=== PATIENT | female | born 1975 | race Caucasian/White ===

== ENCOUNTER → 2017-10-16 | Outpatient (CLI) | payer MEDICAID ==
[2017-10-16 08:04] LABS: Albumin 4.2 g/dL (3.5-5.0); Bilirubin, Delta 0.1 mg/dL (0.0-0.2); Bilirubin,Unconjugated 0.8 mg/dL (0.0-1.1); Total Bilirubin 0.9 mg/dL (0.2-1.3); Total Protein 6.9 g/dL (6.3-8.2)
== END | disposition home or self-care (01) ==
LOC: LABWHC1 07:24
PROVIDERS: ATTEND Family Medicine
DX: R74.8 Abnormal levels of other serum enzymes (principal)
CPT/HCPCS: 36415; 80076

== ENCOUNTER → 2017-11-05 | Outpatient (CLI) | payer MEDICAID ==
--- NOTE | 2017-11-05 12:32 | US ---
EXAMINATION TYPE: US abdomen complete DATE OF EXAM: 11/05/2017 COMPARISON: NONE CLINICAL HISTORY: R74.8 ABN Levels Of Other Serum Enzymes. EXAM MEASUREMENTS: Liver Length: 17.4 cm Gallbladder Wall: Surgically absent CBD: 0.3 cm Spleen: 11.6 cm Right Kidney: 12.2 x 4.9 x 4.8 cm Left Kidney: 11.3 x 4.7 x 4.9 cm Pancreas: wnl. Tail of pancreas obscured by bowel gas. Liver: Increased attenuation, decreased visualization of vessels suggestive of fatty infiltrate, upp er limits of normal in size Gallbladder: Surgically absent Evidence for sonographic Linares's sign: no CBD: wnl Spleen: wnl Right Kidney: Inferior pole slightly obscured by bowel gas, no hydronephrosis or masses seen Left Kidney: No hydronephrosis or masses seen Upper IVC: wnl Abd Aorta: wnl IMPRESSION: 1. Mild fatty infiltration of the liver.
== END | disposition home or self-care (01) ==
LOC: RADUSWWP 10:21
PROVIDERS: ATTEND Family Medicine
DX: K76.0 Fatty (change of) liver, not elsewhere classified (principal)
CPT/HCPCS: 76700

== ENCOUNTER → 2019-03-03 | Outpatient (CLI) | payer MEDICAID ==
--- NOTE | 2019-03-03 08:51 | US ---
EXAMINATION TYPE: US abdomen complete DATE OF EXAM: 03/03/2019 COMPARISON: Abdominal ultrasound dated 11/05/2017 CLINICAL HISTORY: R10.12 LUQ Pain. LUQ Pain EXAM MEASUREMENTS: Liver Length: 16.7 cm Gallbladder Wall: Surgically absent cm CBD: .5 cm Spleen: 11.4 cm Right Kidney: 10.2 x 4.4 x 4.8 cm Left Kidney: 11.0 x 5.6 x 4.9 cm Pancreas: Tail is largely obscured by bowel gas however there appears to be a 5 mm possible pancreat ic tail hypoechoic lesion on image 4/60. Liver: There is increased echogenicity of the hepatic parenchyma with diminished visualization of th e portal triads most commonly relating to hepatic steatosis and limiting evaluation for underlying he patic masses. Gallbladder: Surgically absent Evidence for sonographic Linares's sign: No CBD: wnl Spleen: wnl Right Kidney: wnl Left Kidney: wnl Upper IVC: wnl Abd Aorta: wnl The liver is heterogenous. The intrahepatic portion of the IVC and proximal abdominal aorta are with in normal limits. Common bile duct is unremarkable. The spleen is unremarkable. Kidneys are symmetr ic and free of hydronephrosis. No renal lesions are seen. IMPRESSION: 1. Sonographic findings most commonly related to hepatic steatosis. Correlate with liver function ava ts. 2. Possible 5 mm pancreatic tail lesion seen on a single image only. Further evaluation with MRCP wit h and without contrast is recommended. 3. Surgical absence of the gallbladder.
[2019-03-03 09:36] LABS: Basophils # (A) 0.1 k/uL (0-0.2); Basophils % (A) 1 %; Eosinophils # (A) 0.8 k/uL (0-0.7); Eosinophils % (A) 9 %; HCT 42.5 % (34.0-46.0); HGB 13.6 gm/dL (11.4-16.0); Lymphocytes # (A) 2.8 k/uL (1.0-4.8); Lymphocytes % (A) 31 %; MCH 28.5 pg (25.0-35.0); MCHC 32.1 g/dL (31.0-37.0); MCV 88.9 fL (80.0-100.0); Monocytes # (A) 0.4 k/uL (0-1.0); Monocytes % (A) 5 %; Neutrophils # (A) 4.8 k/uL (1.3-7.7); Neutrophils % (A) 53 %; Platelet Count 352 k/uL (150-450); RBC 4.78 m/uL (3.80-5.40); RDW 12.8 % (11.5-15.5)
[2019-03-03 10:00] LABS: ALT 29 U/L (9-52); AST 23 U/L (14-36); African American GFR (CKD) >90 (>60 ml/min/1.73 sqM); Albumin 4.3 g/dL (3.5-5.0); Alkaline Phosphatase 121 U/L (38-126); Amylase 44 U/L (30-110); Anion Gap 11 mmol/L; Blood Urea Nitrogen 10 mg/dL (7-17); Calcium 8.9 mg/dL (8.4-10.2); Carbon Dioxide 25 mmol/L (22-30); Chloride 106 mmol/L (98-107); Cholesterol 194 mg/dL (<200); Glucose 110 mg/dL (74-99); HDL Cholesterol 48 mg/dL (40-60); LDL Cholesterol,Calculated 130 mg/dL (0-99); Non-African American GFR(CKD) >90 (>60 ml/min/1.73 sqM); Potassium 4.8 mmol/L (3.5-5.1); Sodium 142 mmol/L (137-145); Total Protein 7.6 g/dL (6.3-8.2); Triglycerides 80 mg/dL (<150)
== END | disposition home or self-care (01) ==
LOC: RADUSWWP 07:58
PROVIDERS: ATTEND Family Medicine
DX: R10.12 Left upper quadrant pain (principal); Z90.49 Acquired absence of other specified parts of digestive tract; F32.9 Major depressive disorder, single episode, unspecified; E78.89 Other lipoprotein metabolism disorders; R74.8 Abnormal levels of other serum enzymes
CPT/HCPCS: 76700; 80053; 80061; 82150; 83690; 84443; 85025

== ENCOUNTER → 2019-03-14 | Outpatient (CLI) | payer MEDICAID ==
--- NOTE | 2019-03-14 12:37 | MR ---
MRCP HISTORY: Abnormal diagnostic imaging, left upper quadrant pain Multiplanar multisequence imaging obtained through the biliary system with postprocessing performed o n an alternate workstation. Correlation ultrasound abdomen 03/03/2019 Biliary system is patent, there is no abnormal luminal filling defect. No biliary dilation. Gallbladd er is not seen, surgically absent. There is signal loss of the liver on out of phase imaging compatib le steatosis. No evident liver mass. Pancreas is normal. Splenic artery is tortuous at the level of t he pancreatic tail and likely accounts for the abnormality seen on ultrasound. No retroperitoneal ad enopathy. Aorta shows normal caliber. No bowel obstruction evident. Inferior vena cava normal as seen . Adrenal glands are normal. Kidneys show no hydronephrosis, no cortical cyst or mass. IMPRESSION: Abnormality on ultrasound thought likely to correspond to tortuous splenic artery. Hepati c steatosis. Postop changes.
== END | disposition home or self-care (01) ==
LOC: RADMRIMAIN 08:42
PROVIDERS: ATTEND Family Medicine
DX: K76.0 Fatty (change of) liver, not elsewhere classified (principal)
CPT/HCPCS: 74181

== ENCOUNTER → 2019-04-08 | Outpatient (CLI) | payer MEDICAID ==
[2019-04-08 15:15] LABS: Hemoglobin A1C 5.1 % (4.0-6.0)
== END | disposition home or self-care (01) ==
LOC: LABWHC1 07:24
PROVIDERS: ATTEND Family Medicine
DX: R73.9 Hyperglycemia, unspecified (principal)
CPT/HCPCS: 36415; 82947; 83036

== ENCOUNTER → 2019-06-12 | Outpatient (CLI) | payer MEDICAID ==
--- NOTE | 2019-06-12 09:01 | XR ---
EXAMINATION TYPE: XR chest 2V DATE OF EXAM: 06/12/2019 COMPARISON: NONE HISTORY: Cough for 2 months TECHNIQUE: Frontal and lateral views of the chest are obtained. FINDINGS: Diffuse interstitial prominence. 5 mm nodular density in the left midlung. There is no foca l air space opacity, pleural effusion, or pneumothorax seen. The cardiac silhouette size is within n ormal limits. The osseous structures are intact. Mild acromioclavicular arthropathy and very minima l degenerative changes of the thoracic spine. IMPRESSION: 1. Diffuse interstitial prominence that they can be seen in bronchitis, atypical pneumonia or less li ger fluid overload. 2. 5 mm left midlung nodular density. CT thorax is recommended for further evaluation.
== END | disposition home or self-care (01) ==
LOC: RADXRMAIN 07:29
PROVIDERS: ATTEND Family Medicine
DX: R91.1 Solitary pulmonary nodule (principal); J40 Bronchitis, not specified as acute or chronic; J18.9 Pneumonia, unspecified organism
CPT/HCPCS: 71046

== ENCOUNTER → 2019-06-13 | Outpatient (CLI) | payer MEDICAID ==
--- NOTE | 2019-06-13 11:39 | CT ---
EXAMINATION TYPE: CT chest w con DATE OF EXAM: 06/13/2019 COMPARISON: 06/12/2019 chest x-ray HISTORY: cough, abn CXR CT DLP: 466.5 mGycm, Automated exposure control for dose reduction was used. CONTRAST: Performed injected with 100 mL of Isovue 300. TECHNIQUE: Axial images were obtained at 5 mm thick sections. Reconstructed images are reviewed on e(ye)BRAIN computer in the coronal plane. FINDINGS: Thyroid is slightly heterogenous with a hypodensity measuring 1.2 cm within the right lobe thyroid. This could be further evaluated with ultrasound. No suspicious lung nodules or focal infiltrates are present. There is a calcified granuloma within th e left midlung at the level of the hilum corresponding to the abnormality identified on chest x-ray. Calcification measures 0.5 cm and 1000 Hounsfield units. Lung astudillo are otherwise clear. No enlarged mediastinal or hilar adenopathy is evident. The ascending aorta diameter at the level o f the main pulmonary artery is 3.2 cm. The main pulmonary artery diameter at the bifurcation is 2.[address] sections are obtained through the upper abdomen. There is moderate fatty infiltration thro ugh the liver. Upper abdomen is otherwise unremarkable. IMPRESSIONS: 1. Benign calcification left midlung corresponding to finding on chest x-ray. 2. No suspicious abnormality to account for patient's cough. 3. Moderate fatty infiltration the visualized liver.
== END | disposition home or self-care (01) ==
LOC: RADCTMAIN 10:11
PROVIDERS: ATTEND Internal Medicine Critical Care Medicine
DX: J98.4 Other disorders of lung (principal)
CPT/HCPCS: 71260; Q9967

== ENCOUNTER → 2020-06-11 | Outpatient (CLI) | payer MEDICAID ==
--- NOTE | 2020-06-11 16:14 | XR ---
EXAMINATION TYPE: XR lumbar spine 2 or 3V DATE OF EXAM: 06/11/2020 Comparison: None Clinical History: 44-year-old female M54.5 Findings: Hypertrophic facet arthropathy lower lumbar spine. Vertebral body heights are preserved and alignment is maintained. Slight levoconvex curvature of the lumbar spine. Impression: Hypertrophic facet arthropathy lower lumbar spine without vertebral compression collapse or malalignm ent. Slight levoconvex curvature could be positional or due to muscle spasm.
== END | disposition home or self-care (01) ==
LOC: RADXRMAIN 14:27
PROVIDERS: ATTEND Family Medicine
DX: M47.816 Spondylosis without myelopathy or radiculopathy, lumbar region (principal)
CPT/HCPCS: 72100

== ENCOUNTER → 2020-08-09 | Outpatient (CLI) | payer MEDICAID ==
--- NOTE | 2020-08-10 04:25 | MR ---
EXAMINATION TYPE: MR lumbar spine wo con DATE OF EXAM: 08/09/2020 COMPARISON: None HISTORY: Right low back and hip pain for 5 months. Multiplanar multiecho imaging of the lumbar spine was performed without contrast. Lumbar vertebra have normal alignment. There is slight decreased signal in the disc at L5-S1. Disc sp aces are fairly normal. There is no compression fracture. There is a minimal posterior concentric dis c bulge at L5-S1. The neural foramina are fairly well-maintained. There is no spinal stenosis. Lumbar nerve roots appear normal. There is developmentally large spinal canal. There is no lumbar paraspinal mass. I see no focal bone destruction. IMPRESSION: Small posterior disc bulge at L5-S1. No lumbar spinal stenosis. No fracture.
== END ==
LOC: RADMAMWWP 16:14
PROVIDERS: ATTEND Family Medicine
DX: M51.17 Intervertebral disc disorders with radiculopathy, lumbosacral region (principal)
CPT/HCPCS: 72148

== ENCOUNTER → 2020-09-08 | Outpatient (CLI) | payer MEDICAID ==
[2020-09-08 15:52] LABS: HCT 41.3 % (37.2-46.3); HGB 13.5 g/dL (12.0-15.0); MCH 29.2 pg (27.0-32.0); MCHC 32.7 g/dL (32.0-37.0); MCV 89.4 fL (80.0-97.0); Mean Platelet Volume 8.8 fL (9.5-12.2); Platelet Count 346 X 10*3/uL (140-440); RBC 4.62 X 10*6/uL (4.10-5.20); RDW 12.1 % (11.5-14.5); WBC 8.61 X 10*3/uL (4.50-10.00)
[2020-09-08 16:44] LABS: Follicle Stimulating Hormone 7.2 mIU/mL
[2020-09-08 17:12] LABS: T4, Free (Free Thyroxine) 0.8 ng/dL (0.80-1.80)
== END | disposition home or self-care (01) ==
LOC: LABWHC1 07:45
PROVIDERS: ATTEND Obstetrics & Gynecology
DX: R53.83 Other fatigue (principal)
CPT/HCPCS: 36415; 83001; 84439; 84443; 85027

== ENCOUNTER → 2020-11-03 | Outpatient (CLI) | payer MEDICAID ==
--- NOTE | 2020-11-09 19:30 | HM ---
HOLTER MONITOR REPORT Patient's was monitored for 24 hours. Baseline rhythm is sinus mechanism with normal conduction. The average rate 63 beats per minute, minimum 58 maximum 129 beats per minute. Ventricular ectopic activity was not present. Supraventricular ectopic activity was present in the form of rare single PACs. No diary was available. CONCLUSION: 1. Sinus mechanism baseline rhythm. 2. Rare supraventricular ectopic activity. 3. No ventricular ectopic activity. 4. No diary was available. MMODL / IJN: [id number] /
== END | disposition home or self-care (01) ==
LOC: RADECHMAIN 12:33
PROVIDERS: ATTEND Family Medicine
DX: I49.1 Atrial premature depolarization (principal)
CPT/HCPCS: 93225; 93226

== ENCOUNTER → 2020-11-05 | Outpatient (CLI) | payer MEDICAID ==
--- NOTE | 2020-11-05 18:19 | ECHOF ---
Referral Reason:R00.2 palpations MEASUREMENTS -------- HEIGHT: 172.7 cm WEIGHT: 99.8 kg BP: RVIDd: 3.2 cm (< 3.3) IVSd: 1.2 cm (0.6 - 1.1) LVIDd: 4.6 cm (3.9 - 5.3) LVPWd: 1.3 cm (0.6 - 1.1) IVSs: 1.7 cm LVIDs: 2.3 cm LVPWs: 1.9 cm LAESV Index (A-L): 25.60 ml/m Ao Diam: 2.3 cm (2.0 - 3.7) AV Cusp: 1.8 cm (1.5 - 2.6) LA Diam: 3.7 cm (2.7 - 3.8) MV EXCURSION: 16.757 mm (> 18.000) MV EF SLOPE: 103 mm/s (70 - 150) EPSS: 0.4 cm MV E Sean: 1.17 m/s MV DecT: 230 ms MV A Sean: 1.05 m/s MV E/A Ratio: 1.12 RAP: 5.00 mmHg RVSP: 22.99 mmHg FINDINGS -------- Sinus rhythm. This was a technically adequate study. The left ventricular size is normal. There is borderline concentric left ventricular hypertrophy. Overall left ventricular systolic function is normal with, an EF between 55 - 60 %. The diastolic filling pattern is normal for the age of the patient 11.62. The right ventricle is normal in size. Normal LA size by volume 22+/-6 ml/m2. The right atrial size is normal. Interatrial and interventricular septum intact. The aortic valve is trileaflet and appears structurally normal. There is no evidence of aortic regu rgitation. There is no evidence of aortic stenosis. Mild mitral regurgitation is present. Mild tricuspid regurgitation present. There is no evidence of pulmonary hypertension. The right v entricular systolic pressure, as measured by Doppler, is 22.99mmHg. There is no pulmonic regurgitation present. The aortic root size is normal. IVC Not well visulized. There is no pericardial effusion. CONCLUSIONS -------- 1. The left ventricular size is normal. 2. There is borderline concentric left ventricular hypertrophy. 3. Overall left ventricular systolic function is normal with, an EF between 55 - 60 %. 4. The diastolic filling pattern is normal for the age of the patient 11.62 5. Mild mitral regurgitation is present. 6. Mild tricuspid regurgitation present. INSTRUCTIONAL SUPPORT TECHNICIAN: Brandie Saldaña RDCS
== END | disposition home or self-care (01) ==
LOC: RADECHMAIN 14:32
PROVIDERS: ATTEND Family Medicine
DX: I08.1 Rheumatic disorders of both mitral and tricuspid valves (principal)
CPT/HCPCS: 93306

== ENCOUNTER → 2021-02-14 | Outpatient (CLI) | payer MEDICAID ==
--- NOTE | 2021-02-14 08:32 | XR ---
EXAMINATION TYPE: XR lumbar spine with bend/flex DATE OF EXAM: 02/14/2021 CLINICAL HISTORY: pain COMPARISON: NONE TECHNIQUE: AP and lateral views of the lumbar spine are submitted including flexion and extension vie ws. FINDINGS: There are 5 lumbar type vertebral bodies identified. The lumbar spine shows satisfactory alignment without evidence of acute fracture or dislocation. Alignment is stable at neutral, flexion and extension. Vertebral body heights are within normal limits. Disc spaces are well preserved. The overlying soft tissue appears unremarkable. IMPRESSION: No acute fracture or dislocation is seen in the lumbar spine.ICD 10 NO FRACTURE, INITIAL EVALUATION
--- NOTE | 2021-02-14 08:34 | XR ---
EXAMINATION TYPE: XR toes RT DATE OF EXAM: 02/14/2021 COMPARISON: NONE HISTORY: Pain and trauma TECHNIQUE: 3 views of the right second digit are submitted. FINDINGS: There is fracture involving the head and neck of the proximal phalanx right second digit. D isplacement is estimated at approximately 1.2 mm. There appears to be intra-articular extension. No a dditional fractures are seen. IMPRESSION: As above
== END | disposition home or self-care (01) ==
LOC: RADXRMAIN 07:52
PROVIDERS: ATTEND Internal Medicine
DX: S92.511A Displaced fracture of proximal phalanx of right lesser toe(s), initial encounter for closed fracture (principal); X58.XXXA Exposure to other specified factors, initial encounter
CPT/HCPCS: 72114

== ENCOUNTER → 2021-02-14 | Outpatient (CLI) | payer MEDICAID | END | disposition home or self-care (01) | LOC: RADXRMAIN 07:49 | PROVIDERS: ATTEND Psychiatry & Neurology Neurology | DX: Z53.9 Procedure and treatment not carried out, unspecified reason (principal) ==

== ENCOUNTER → 2021-07-27 | Outpatient (CLI) | payer MEDICAID ==
--- NOTE | 2021-07-29 11:52 | MM ---
Reason for exam: screening (asymptomatic). Last mammogram was performed 6 years and 11 months ago. History: Taking hormonal contraceptives for 20 years. Physical Findings: A clinical breast exam by your physician is recommended on an annual basis and results should be correlated with mammographic findings. MG 3D Screening Mammo W/Cad Bilateral CC and MLO view(s) were taken. Prior study comparison: August 20, 2014, bilateral MG screening mammo w CAD. The breast tissue is heterogeneously dense. This may lower the sensitivity of mammography. This finding is changed when compared with previous exams. ASSESSMENT: Incomplete: need additional imaging evaluation, BI-RAD 0 RECOMMENDATION: Special view mammogram of the right breast. If lesion persists on supplemental views, image directed ultrasound is recommended. [facility] will attempt to contact patient to return for supplemental views and ultrasound if indicated.
== END | disposition home or self-care (01) ==
LOC: RADMAMWWP 16:15
PROVIDERS: ATTEND Obstetrics & Gynecology
DX: Z12.31 Encounter for screening mammogram for malignant neoplasm of breast (principal)
CPT/HCPCS: 77063; 77067

== ENCOUNTER → 2021-08-05 | Outpatient (CLI) | payer MEDICAID ==
--- NOTE | 2021-08-05 10:24 | MM ---
Reason for exam: additional evaluation requested from abnormal screening. Last mammogram was performed less than 1 month ago. History: Taking hormonal contraceptives for 20 years. Physical Findings: A clinical breast exam by your physician is recommended on an annual basis and results should be correlated with mammographic findings. MG 3D Work Up W/Cad RT Spot compression CC, spot compression MLO, spot compression XCCL, and ML view(s) were taken of the right breast. Prior study comparison: July 27, 2021, bilateral MG 3d screening mammo w/cad. August 20, 2014, bilateral MG screening mammo w CAD. The breast tissue is heterogeneously dense. This may lower the sensitivity of mammography. Multiple nodes upper outer quadraing right breast. Dominant nodule 10cm from nipple measures 11mm. These results were verbally communicated with the patient and result sheet given to the patient on 08/05/21. ASSESSMENT: Incomplete: need additional imaging evaluation, BI-RAD 0 RECOMMENDATION: Ultrasound of the right breast.
--- NOTE | 2021-08-05 10:27 | USB ---
Reason for exam: additional evaluation requested from abnormal screening. History: Taking hormonal contraceptives for 20 years. US Breast Workup Limited RT Technologist: Meggan Ku Right limited breast ultrasound including focal area of concern, retroareolar and axilla demonstrates a 0.9 x 0.8 x 0.7cm mixed lesion at 10 o'clock, 10cm from nipple. These results were verbally communicated with the patient and result sheet given to the patient on 08/05/21. ASSESSMENT: Suspicious, BI-RAD 4 RECOMMENDATION: Ultrasound core biopsy of the right breast. Called Dr. Edgar's office with mammographic findings and has scheduled an appointment for the patient for 09/29/21 at 8:[address] Rashid. Biopsy scheduled for 08/11/21 at 10:30. PRELIMINARY REPORT CALLED AND FAXED TO DR. RASHID ON 08/05/21.
== END | disposition home or self-care (01) ==
LOC: RADMAMWWP 08:50
PROVIDERS: ATTEND Obstetrics & Gynecology
DX: R92.8 Other abnormal and inconclusive findings on diagnostic imaging of breast (principal)
CPT/HCPCS: 77061; 77065

== ENCOUNTER → 2021-08-11 | Day surgery (SDC) | payer MEDICAID ==
[2021-08-11 09:46] VITALS: RESP 16; TEMP 98.1
[2021-08-11 11:01] VITALS: BP 145/97; PULSE 90
--- NOTE | 2021-08-11 13:25 | USB ---
EXAMINATION TYPE: US biopsy breast VAD RT, MG diagnostic mammo RT wo CAD DATE OF EXAM: 08/11/2021 CLINICAL HISTORY: R92.8 ABN MAMMO. TECHNIQUE: Ultrasound guided core biopsy of Right 10:00 breast. COMPARISON: NONE FINDINGS: The procedure of ultrasound guided core biopsy was explained to the patient. Benefits, alternatives, and risks were discussed. An informed consent was then obtained. The patient was placed in supine positioning for imaging and for the procedure. The overlying skin was prepped and draped in usual sterile fashion. Lidocaine buffered with bicarbonate was used as anesthetic into the skin and subcutaneous tissue up to area of concern in the Right 10:00 breast. A georges was made with surgical scalpel. Under ultrasound guidance, a 12-gauge vacuum assisted biopsy gun device was used to obtain 3 core samples. Following this, a biopsy clip was left in lesion. Postprocedural mammogram demonstrates appropriate clip deployment. The patient tolerated the procedure well without any immediate complication. The patient was kept in the radiology department for short stay after the procedure and then discharged home in stable condition. IMPRESSION: Successful, uncomplicated ultrasound guided core biopsy of area of concern in the Right 10:00 breast, full pathology results to follow. Pathology Results: High Risk RIGHT BREAST, 10:00 POSITION, CORE BIOPSY: Fibrocystic change with cystically dilated ducts and apocrine metaplasia having papillary change. Recommendation Surgical consult of the right breast. Consideration to surgical excision if warranted for the papillary apocrine metaplasia. MTDD
== END | disposition home or self-care (01) ==
LOC: RADUSWWP 09:30
PROVIDERS: ATTEND Surgery
DX: N60.81 Other benign mammary dysplasias of right breast (principal)
CPT/HCPCS: 19083; 88305; 77065; A4648; J2001

== ENCOUNTER → 2021-12-19 | Outpatient (CLI) | payer MEDICAID ==
[2021-12-19 15:40] LABS: Basophils # (A) 0.04 X 10*3/uL (0.00-0.10); Basophils % (A) 0.5 %; Eosinophils # (A) 0.28 X 10*3/uL (0.04-0.35); Eosinophils % (A) 3.8 %; HCT 41.5 % (37.2-46.3); HGB 13.7 g/dL (12.0-15.0); Immature Grans, Automated 0.5 %; Lymphocytes # (A) 2.32 X 10*3/uL (0.90-5.00); Lymphocytes % (A) 31.5 %; MCH 29.5 pg (27.0-32.0); MCV 89.4 fL (80.0-97.0); Mean Platelet Volume 8.5 fL (9.5-12.2); Monocytes # (A) 0.49 X 10*3/uL (0.20-1.00); Monocytes % (A) 6.7 %; NRBC Per 100 WBC 0 /100 WBCS (0.0-0.0); Neutrophils # (A) 4.19 X 10*3/uL (1.80-7.70); Platelet Count 314 X 10*3/uL (140-440); RBC 4.64 X 10*6/uL (4.10-5.20); RDW 12.5 % (11.5-14.5); WBC 7.36 X 10*3/uL (4.50-10.00)
[2021-12-19 16:03] LABS: ALT 44 U/L (8-44); AST 32 U/L (13-35); African American GFR (CKD) 122.1 (60.0-200.0); Albumin 4.7 g/dL (3.8-4.9); Albumin/Globulin Ratio 1.62 (1.60-3.17); Alkaline Phosphatase 105 U/L (41-126); BUN/Creat Ratio 14.86 Ratio (12.00-20.00); Blood Urea Nitrogen 10.4 mg/dL (9.0-27.0); Calcium 9.4 mg/dL (8.7-10.3); Carbon Dioxide 25.3 mmol/L (20.0-27.5); Chloride 102 mmol/L (96-109); Chol/HDL Ratio 3.65 Ratio; Globulin 2.9 g/dL (1.6-3.3); Glucose 112 mg/dL (70-110); Non-African American GFR(CKD) 105.4 (60.0-200.0); Potassium 4.4 mmol/L (3.5-5.5); Sodium 139 mmol/L (135-145); Total Protein 7.6 g/dL (6.2-8.2)
== END | disposition home or self-care (01) ==
LOC: LABWHC1 08:06
PROVIDERS: ATTEND Family Medicine
DX: Z00.00 Encounter for general adult medical examination without abnormal findings (principal); Z80.3 Family history of malignant neoplasm of breast
CPT/HCPCS: 36415; 80053; 80061; 84443; 85025

== ENCOUNTER → 2022-02-03 | Outpatient (CLI) | payer MEDICAID ==
--- NOTE | 2022-02-03 14:12 | USB ---
Patient History: Menarche at age 16. First Full-Term at age 22. Currently using Hormonal Contraceptives, for 20 years. 08/11/2021, High risk Core Biopsy on the right side. Maternal uncle had breast cancer, age 50. Risk Values: Kaley 5 year model risk: 1.0%. NCI Lifetime model risk: 9.6%. Prior Study Comparison: 07/27/2021 Bilateral Screening Mammogram, [facility]. 08/05/2021 Right Diagnostic Mammogram, [facility]. 08/11/2021 Right Diagnostic Mammogram, [facility]. Findings: Site of previous biopsies redemonstrated and appears to be smaller in size with small cystic area measuring 4 x 2 mm. No solid masses seen. Overall Assessment: Benign, BI-RAD 2 Management: Screening Mammogram of both breasts in 6 months. A clinical breast exam by your physician is recommended on an annual basis and results should be correlated with mammographic findings. Electronically signed and approved by: Junior Sneed M.D. Radiologis
--- NOTE | 2022-02-03 14:12 | MM ---
Reason for Exam: Follow-up at short interval from prior study. Last screening mammogram was performed 6 month(s) ago. Patient History: Menarche at age 16. First Full-Term at age 22. Currently using Hormonal Contraceptives, for 20 years. 08/11/2021, High risk Core Biopsy on the right side. Maternal uncle had breast cancer, age 50. Risk Values: Kaley 5 year model risk: 1.0%. NCI Lifetime model risk: 9.6%. Prior Study Comparison: 07/27/2021 Bilateral Screening Mammogram, [facility]. 08/05/2021 Right Diagnostic Mammogram, [facility]. 08/11/2021 Right Diagnostic Mammogram, [facility]. Tissue Density: Right: The breast tissue is heterogeneously dense. This may lower the sensitivity of mammography. Findings: Analyzed By CAD. No persistent mass or distortion. Microclip marker from prior biopsy. Overall Assessment: Incomplete: need additional imaging evaluation, BI-RAD 0 Management: Diagnostic Breast Ultrasound of the right breast. A clinical breast exam by your physician is recommended on an annual basis and results should be correlated with mammographic findings. This exam should not preclude additional follow-up of suspicious palpable abnormalities. Results were given to the patient verbally at the time of exam. Electronically signed and approved by: Junior Sneed M.D. Radiologis
== END | disposition home or self-care (01) ==
LOC: RADMAMWWP 12:51
PROVIDERS: ATTEND Surgery
DX: R92.8 Other abnormal and inconclusive findings on diagnostic imaging of breast (principal)
CPT/HCPCS: 77061; 77065

== ENCOUNTER → 2022-08-18 | Outpatient (CLI) | payer MEDICAID ==
--- NOTE | 2022-08-21 12:50 | MM ---
Reason for Exam: Screening (asymptomatic). Last screening mammogram was performed 12 month(s) ago. Patient History: Menarche at age 16. First Full-Term at age 22. Currently using Hormonal Contraceptives, for 20 years. 08/11/2021, High risk Core Biopsy on the right side. Maternal uncle had breast cancer, age 50. Risk Values: Kaley 5 year model risk: 1.0%. NCI Lifetime model risk: 9.6%. Prior Study Comparison: 08/05/2021 Right Diagnostic Mammogram, [facility]. 08/11/2021 Right Diagnostic Mammogram, [facility]. 02/03/2022 Right MG 3D diag mammo w/cad RT, [facility]. Tissue Density: The breast tissue is heterogeneously dense. This may lower the sensitivity of mammography. Findings: Analyzed By CAD. Mammotome biopsy clip in the right breast is redemonstrated. There is enlarging 13 mm mass inferior to the right breast biopsy clip on the MLO image 26 towards further workup middle to posterior depth. There is 10 mm oval circumscribed mass in the left breast middle to posterior depth slightly inner aspect that warrants further workup. There is no suspicious new group of microcalcifications in either breast. Overall Assessment: Incomplete: need additional imaging evaluation, BI-RAD 0 Management: Diagnostic Breast Ultrasound of both breasts. Bilateral breast ultrasound. Electronically signed and approved by: Kota Hermosillo M.D.
== END | disposition home or self-care (01) ==
LOC: RADMAMWWP 08:55
PROVIDERS: ATTEND Surgery
DX: Z12.31 Encounter for screening mammogram for malignant neoplasm of breast (principal); Z80.3 Family history of malignant neoplasm of breast
CPT/HCPCS: 77063; 77067

== ENCOUNTER → 2022-08-30 | Outpatient (CLI) | payer MEDICAID ==
--- NOTE | 2022-08-30 15:09 | USB ---
Reason for Exam: Additional evaluation requested from abnormal screening. Patient History: Menarche at age 16. First Full-Term at age 22. Currently using Hormonal Contraceptives, for 20 years. 08/11/2021, High risk Core Biopsy on the right side. Maternal uncle had breast cancer, age 50. Risk Values: Kaley 5 year model risk: 1.0%. NCI Lifetime model risk: 9.6%. Technique: Method: Targeted. Prior Study Comparison: 08/11/2021 Right Diagnostic Mammogram, [facility]. 02/03/2022 Right MG 3D diag mammo w/cad RT, [facility]. 08/18/2022 Bilateral MG 3D screening mammo w/cad, [facility]. Findings: The whole breast of the right breast, the medial section of the breast of the left breast, the axilla of both breasts and the retroareolar of both breasts were scanned. Bilateral breast ultrasound shows prominent but benign-appearing bilateral axillary lymph nodes. Left breast shows 7 x 2 mm elongated anechoic lesion 12:00 position. No concerning solid or cystic mass in the right breast. Overall Assessment: Incomplete: need additional imaging evaluation, BI-RAD 0 Management: Special View Mammogram of both breasts. Additional bilateral diagnostic mammogram images. Electronically signed and approved by: Kota Hermosillo M.D.
--- NOTE | 2022-08-30 15:42 | MM ---
Reason for Exam: Additional evaluation requested from abnormal screening. Last screening mammogram was performed less than 1 month ago. Patient History: Menarche at age 16. First Full-Term at age 22. Currently using Hormonal Contraceptives, for 20 years. 08/11/2021, High risk Core Biopsy on the right side. Maternal uncle had breast cancer, age 50. Last menstrual period: 08/04/2022 Risk Values: Kaley 5 year model risk: 1.0%. NCI Lifetime model risk: 9.6%. Prior Study Comparison: 02/03/2022 Right MG 3D diag mammo w/cad RT, [facility]. 08/18/2022 Bilateral MG 3D screening mammo w/cad, [facility]. Tissue Density: There are scattered fibroglandular densities. Findings: Analyzed By CAD. Oval subcentimeter masses in both breasts appear to persist or do not go away and additional views but are not definitively documented on ultrasound. Findings favor bilateral thin-walled cysts or fibrocystic change in patient under 50. Overall Assessment: Probably benign, BI-RAD 3 Management: Diagnostic Mammogram of both breasts in 6 months. Precautionary short-term follow-up study. Results were given to the patient verbally at the time of exam. Electronically signed and approved by: Kota Hermosillo M.D.
== END | disposition home or self-care (01) ==
LOC: RADUSWWP 14:15
PROVIDERS: ATTEND Surgery
DX: R92.8 Other abnormal and inconclusive findings on diagnostic imaging of breast (principal); Z80.3 Family history of malignant neoplasm of breast
CPT/HCPCS: 77062; 77066

== ENCOUNTER → 2022-12-29 | Outpatient (CLI) | payer MEDICAID ==
[2022-12-29 16:06] LABS: Basophils # (A) 0.06 X 10*3/uL (0.00-0.10); Basophils % (A) 0.6 %; Eosinophils # (A) 0.27 X 10*3/uL (0.04-0.35); Eosinophils % (A) 2.9 %; HCT 42.4 % (37.2-46.3); HGB 14.1 d/dL (12.0-15.0); Lymphocytes # (A) 2.44 X 10*3/uL (0.90-5.00); Lymphocytes % (A) 26.1 %; MCH 29.8 pg (27.0-32.0); MCHC 33.3 d/dL (32.0-37.0); MCV 89.6 FL (80.0-97.0); Mean Platelet Volume 8.4 FL (9.5-12.2); Monocytes # (A) 0.62 X 10*3/uL (0.20-1.00); Monocytes % (A) 6.6 %; NRBC Per 100 WBC 0 X 10*3/uL (0.00-0.01); Neutrophils # (A) 5.91 X 10*3/uL (1.80-7.70); Neutrophils % (A) 63.2 %; Platelet Count 342 X 10*3/uL (140-440); RBC 4.73 X 10*6/uL (4.10-5.20); RDW 12.4 % (11.5-14.5); WBC 9.36 X 10*3/uL (4.50-10.00)
[2022-12-29 16:08] LABS: ALT 52 U/L (8-44); AST 29 U/L (13-35); Albumin 4.7 d/dL (3.8-4.9); Albumin/Globulin Ratio 1.88 Ratio (1.60-3.17); Alkaline Phosphatase 96 U/L (41-126); Blood Urea Nitrogen 11.2 mg/dL (9.0-27.0); Calcium 9.4 mg/dL (8.7-10.3); Carbon Dioxide 23.8 mmol/L (21.6-31.8); Chloride 102 mmol/L (96-109); Chol/HDL Ratio 3.36 Ratio; Globulin 2.5 d/dL (1.6-3.3); Glucose 118 mg/dL (70-110); LDL Cholesterol,Calculated 124.9 mg/dL (0.0-131.0); Potassium 4.3 mmol/L (3.5-5.5); Sodium 138 mmol/L (135-145); T4, Free (Free Thyroxine) 1.11 ng/dL (0.80-1.80); Total Bilirubin 1.1 mg/dL (0.3-1.2); Total Protein 7.2 d/dL (6.2-8.2)
== END | disposition home or self-care (01) ==
LOC: LABWHC1 10:56
PROVIDERS: ATTEND Family Medicine
DX: E78.5 Hyperlipidemia, unspecified (principal); R73.9 Hyperglycemia, unspecified; R63.5 Abnormal weight gain
CPT/HCPCS: 36415; 80053; 80061; 83036; 84439; 84443; 84481; 85025

== ENCOUNTER → 2023-03-19 | Outpatient (CLI) | payer MEDICAID ==
--- NOTE | 2023-03-19 09:43 | MM ---
Reason for Exam: Additional evaluation requested from prior study. Last screening mammogram was performed 6 month(s) ago. Patient History: Menarche at age 16. First Full-Term at age 22. Premenopausal. Patient has history of breast feeding. Currently using Hormonal Contraceptives, starting at age 22. 08/11/2021, High risk Core Biopsy on the right side. Maternal uncle had breast cancer, age 50. Last menstrual period: 03/17/2023 Risk Values: Kaley 5 year model risk: 1.0%. NCI Lifetime model risk: 9.5%. Prior Study Comparison: 08/20/2014 Bilateral Screening Mammogram, [facility]. 07/27/2021 Bilateral Screening Mammogram, [facility]. 08/05/2021 Right Diagnostic Mammogram, [facility]. 08/11/2021 Right Diagnostic Mammogram, [facility]. 02/03/2022 Right MG 3D diag mammo w/cad RT, [facility]. 08/18/2022 Bilateral MG 3D screening mammo w/cad, [facility]. 08/30/2022 Bilateral MG 3D work up w/cad LIV, [facility]. Tissue Density: There are scattered fibroglandular densities. Findings: Analyzed By CAD. No finding to correlate patient's pain. No new suspicious masses, calcifications or distortions. Overall Assessment: Incomplete: need additional imaging evaluation, BI-RAD 0 Management: Diagnostic Breast Ultrasound of the left breast. Results were given to the patient verbally at the time of exam. Patient should continue monthly self-breast exams. A clinical breast exam by your physician is recommended on an annual basis. This exam should not preclude additional follow-up of suspicious palpable abnormalities. Note on Kaley scores and lifetime risk: 1. A Kaley score greater than 3% is considered moderate risk. If this is the case, consider specialist referral to assess eligibility for a risk reducing agent. 2. If overall lifetime risk for the development of breast cancer is 20% or higher, the patient may qualify for future screening with alternating mammogram and breast MRI. Electronically signed and approved by: Rogelio Fields DO
--- NOTE | 2023-03-19 12:45 | USB ---
Reason for Exam: Additional evaluation requested from abnormal screening. Patient History: Menarche at age 16. First Full-Term at age 22. Premenopausal. Patient has history of breast feeding. Currently using Hormonal Contraceptives, starting at age 22. 08/11/2021, High risk Core Biopsy on the right side. Maternal uncle had breast cancer, age 50. Risk Values: Kaley 5 year model risk: 1.0%. NCI Lifetime model risk: 9.5%. Prior Study Comparison: 02/03/2022 Right MG 3D diag mammo w/cad RT, [facility]. 08/18/2022 Bilateral MG 3D screening mammo w/cad, [facility]. 08/30/2022 Bilateral MG 3D work up w/cad [facility], [facility]. Findings: The lower section of the breast of the left breast was scanned. Left limited breast ultrasound demonstrates no cystic or solid lesion seen. Overall Assessment: Benign, BI-RAD 2 Management: Screening Mammogram of both breasts in 6 months. A clinical breast exam by your physician is recommended on an annual basis and results should be correlated with mammographic findings. This exam should not preclude additional follow-up of suspicious palpable abnormalities. Results were given to the patient verbally at the time of exam. Electronically signed and approved by: Rogelio Fields DO
== END | disposition home or self-care (01) ==
LOC: RADMAMWWP 08:54
PROVIDERS: ATTEND Surgery
DX: R92.8 Other abnormal and inconclusive findings on diagnostic imaging of breast (principal); Z80.3 Family history of malignant neoplasm of breast
CPT/HCPCS: 77062; 77066

== ENCOUNTER → 2023-06-05 | Outpatient (CLI) | payer MEDICAID ==
--- NOTE | 2023-06-05 10:50 | CA ---
Stress Echo Report Fauzia James Age: 47 Gender: F : 1975 Exam Date: 06/05/2023 09:15 Exam Location: [place] [facility] Ht (in): 68 Wt (lb): 218 Ordering Physician: Gwendolyn Miramontes MD Referring Physician: Gwendolyn Miramontes MD Motor Boss: Brandie Saldaña RDCS Technologist Procedure CPT: Indication: R07.89 other chest pain ICD-9 Codes: Rhythm: Patient History: CHEST PAIN, PALPITATIONS, FAMILY HX OF HEART DISEASE, ASTHMA, ELEVATED CHOLESTEROL LEVELS, Cardiac Medications: Medications in past 24 hours: Contrast: Stress Results Protocol: Reji Total dose(mL): Exercise Duration (min:sec): 7:[address] Depression (mm): Angina Score: Mclaughlin Score: METS: 9.1 Resting HR: 84 Resting BP: 143 / 88 Peak HR: 164 Peak BP: 198 / 82 Max Predicted HR: 175 94 % Max Predicted HR Target HR: 149 Double Product: 95124 Stress Summary: NO SYMPTOMS BP Response: Reason for Termination: MAX EXERTION/TARGET HR Cardiac Symptoms: ECG Analysis Resting ECG: Normal sinus rhythm normal axis normal intervals Stress ECG: Patient exercised on Reji protocol for 7 and half minutes achieving 85% of predicted maximal heart rate without chest pain at peak exercise was [address] segment depression noted in the inferolateral leads Arrhythmia: Echo Analysis Resting Echo: Normal left ventricular size mild LV dysfunction with an ejection fraction of 45-50% with hypokinesis involving basilar inferior wall Peak Echo Analysis: There is normal hyperdynamic response of the anterior wall lateral wall septum and mid to distal inferior wall basal inferior wall remains unchanged. MEASUREMENTS (Male/Female) Normal Values CONCLUSIONS Average exercise tolerance Abnormal stress test by EKG criteria Basal inferior wall hypokinesis at rest without any evidence of stress-induced wall motion abnormalities Dr. Mike Jenkins MD (Electronically Signed) Final Date: 05 June 2023 10:49
== END | disposition home or self-care (01) ==
LOC: RADNMMAIN 08:59
PROVIDERS: ATTEND Family Medicine
DX: R07.89 Other chest pain (principal); R94.31 Abnormal electrocardiogram [ECG] [EKG]
CPT/HCPCS: 93351

== ENCOUNTER → 2023-06-27 | Outpatient (CLI) | payer MEDICAID ==
--- NOTE | 2023-06-27 14:15 | CT ---
EXAMINATION TYPE: CT heart w calcium score DATE OF EXAM: 06/27/2023 COMPARISON: HISTORY: Screening for cardiovascular disorder. 213.9 CT DLP: 119 mGycm Automated exposure control for dose reduction was used. CT CALCIUM SCORING Coronary calcium is a marker for plaque (fatty deposits) in a blood vessel or atherosclerosis (harden ing of the arteries). The presence and amount of calcium detected in a coronary artery by the CT sca n, indicates the presence and amount of atherosclerotic plaque. These calcium deposits appear years before the development of heart disease symptoms such as chest pain and shortness of breath. A calcium score is computed for each of the coronary arteries based upon the volume and density of th e calcium deposits. This can be referred to as your calcified plaque burden. It does not correspond directly to the percentage of narrowing in the artery but does correlate with the severity of the un derlying coronary atherosclerosis. PROCEDURE TECHNIQUE - Prospective Gating was used. Slice thickness: 3mm. Density threshold (HU): 130, Pixel threshold: 3, Algorithm: discrete. RESULTS Region: LM Calcium Score (Agatston): 0 Volume (mm3): 0 Mass (g): 0 Region: RCA Calcium Score (Agatston): 0 Volume (mm3): 0 Mass (g): 0 Region: LAD Calcium Score (Agatston): 0 Volume (mm3): 0 Mass (g): 0 Region: CX Calcium Score (Agatston): 0 Volume (mm3): 0 Mass (g): 0 Region: PDA Calcium Score (Agatston): 0 Volume (mm3): 0 Mass (g): 0 Total: Calcium Score (Agatston): 0 Volume (mm3): 0 Mass (g): 0 TOTAL CALCIUM SCORE: 0 IMPRESSION: Calcium Score: 0 Implication: No identifiable plaque. Risk of Coronary Artery Disease: Very low, generally less than 5%. Impression: 1. No suspicious atheromatous plaquing. CALCIUM SCORE IMPLICATION RISK OF C ORONARY ARTERY DISEASE 0 No identifiable plaque Very low, generally less than 5% 1-10 Minimal identifiable plaque Very unlikely, less than 10% 11-100 Definite, at least mild atherosclerotic plaque Mild or m inimal coronary narrowings likely 101-400 Definite, at least moderate atherosclerotic plaque Mild coronary ar shaila disease highly likely, significant narrowing possible 401 or Higher Extensive atherosclerotic plaque High lik elihood of at least one significant coronary narrowing
== END | disposition home or self-care (01) ==
LOC: RADCTMAIN 11:59
PROVIDERS: ATTEND Family Medicine
DX: Z13.6 Encounter for screening for cardiovascular disorders (principal); R07.9 Chest pain, unspecified
CPT/HCPCS: 75571

== ENCOUNTER → 2023-08-24 | Outpatient (CLI) | payer MEDICAID ==
--- NOTE | 2023-08-24 12:17 | CA ---
Transthoracic Echo Report Name: Fauzia James Age: 47 Gender: F : 1975 Exam Date: 08/24/2023 11:44 Exam Location: [place] [facility] Ht (in): 68 Wt (lb): 215 Ordering Physician: Federico Posey MD ([id number]) Attending/Referring Phys: Federico Posey MD ([id number]) [employer] Rochelle Grey RCS Procedure CPT: Indications: Z13.9 SCREENING Cardiac Hx: Technical Quality: Fair Contrast 1: Total Dose (mL): Contrast 2: Total Dose (mL): MEASUREMENTS (Male / Female) Normal Values 2D ECHO LV Diastolic Diameter PLAX 4.8 cm 4.2 - 5.9 / 3.9 - 5.3 cm LV Systolic Diameter PLAX 3.4 cm IVS Diastolic Thickness 0.9 cm 0.6 - 1.0 / 0.6 - 0.9 cm LVPW Diastolic Thickness 0.9 cm 0.6 - 1.0 / 0.6 - 0.9 cm LV Relative Wall Thickness 0.4 RV Internal Dim ED PLAX 2.7 cm LVOT Diameter 2.3 cm LV Diastolic Volume MOD BP 104.4 cm??? 67 - 155 / 56 - 104 cm??? LV Systolic Volume MOD BP 44.0 cm??? 22 - 58 / 19 - 49 cm??? LV Ejection Fraction MOD BP 57.9 % >= 55 % LV Cardiac Index MOD BP 2340.6 cm???/min???m??? LV Diastolic Volume MOD 4C 112.9 cm??? LV Systolic Volume MOD 4C 48.5 cm??? LV Ejection Fraction MOD 4C 57.0 % LV Cardiac Index MOD 4C 2491.3 cm???/min???m??? LV Diastolic Length 4C 8.4 cm LV Systolic Length 4C 6.9 cm LV Diastolic Volume MOD 2C 93.4 cm??? LV Systolic Volume MOD 2C 38.2 cm??? LV Ejection Fraction MOD 2C 59.0 % LV Cardiac Index MOD 2C 2134.4 cm???/min???m??? LV Diastolic Length 2C 8.1 cm LV Systolic Length 2C 6.6 cm LA Volume 42.6 cm??? 18 - 58 / 22 - 52 cm??? LA Volume Index 19.4 cm???/m??? 16 - 28 cm???/m??? Ascending Aorta Diameter 3.3 cm DOPPLER AV Peak Velocity 151.9 cm/s AV Peak Gradient 9.2 mmHg AV Mean Velocity 100.1 cm/s AV Mean Gradient 4.5 mmHg AV Velocity Time Integral 27.5 cm LVOT Peak Velocity 118.5 cm/s LVOT Peak Gradient 5.6 mmHg LVOT Velocity Time Integral 22.2 cm LVOT Stroke Volume 92.8 cm??? LVOT Stroke Volume Index 44.0 ml/m??? LVOT Cardiac Index 3591.2 cm???/min???m??? AV Area Cont Eq vti 3.4 cm??? AV Area Cont Eq pk 3.3 cm??? Mitral E Point Velocity 74.4 cm/s Mitral A Point Velocity 76.7 cm/s Mitral E to A Ratio 1.0 MV Deceleration Time 188.4 ms MV E' Velocity 6.2 cm/s Mitral E to MV E' Ratio 12.0 PV Peak Velocity 90.4 cm/s PV Peak Gradient 3.3 mmHg FINDINGS Left Ventricle Left ventricular ejection fraction is estimated at 55-60 %. Left ventricular wall thickness normal. Left ventricular cavity size normal. No obvious regional wall motion abnormalities. Right Ventricle Normal right ventricular size and function. Unable to estimate right ventricular systolic pressure. Right Atrium Normal right atrial size. Left Atrium Normal left atrial size. Mitral Valve Structurally normal mitral valve. No mitral stenosis, regurgitation or prolapse. Aortic Valve Trileaflet aortic valve. No aortic valve stenosis or regurgitation. Tricuspid Valve Structurally normal tricuspid valve. No tricuspid stenosis. No tricuspid regurgitation. Pulmonic Valve Structurally normal pulmonic valve. No pulmonic stenosis. Trace pulmonic regurgitation. Pericardium No pericardial effusion. Aorta Normal size aortic root and proximal ascending aorta. CONCLUSIONS Left ventricular ejection fraction is estimated at 55-60 %. No obvious regional wall motion abnormalities. Normal right ventricular size and function. No significant valvular dysfunction No pericardial effusion Previewed by: Dr Solomon Juárez (Electronically Signed) Final Date: 24 August 2023 12:16
== END | disposition home or self-care (01) ==
LOC: RADECHMAIN 11:28
PROVIDERS: ATTEND Internal Medicine Interventional Cardiology
DX: Z13.6 Encounter for screening for cardiovascular disorders (principal)
CPT/HCPCS: 93306

== ENCOUNTER → 2023-10-04 | Outpatient (CLI) | payer MEDICAID ==
--- NOTE | 2023-10-07 15:01 | MM ---
Reason for Exam: Screening (asymptomatic). Last screening mammogram was performed 7 month(s) ago. Patient History: Menarche at age 16. First Full-Term at age 22. Premenopausal. Patient has history of breast feeding. Currently using Hormonal Contraceptives, starting at age 22. 08/11/2021, High risk Core Biopsy on the right side. Maternal uncle had breast cancer, age 50. Last menstrual period: 07/23/2023 Risk Values: Kaley 5 year model risk: 1.0%. NCI Lifetime model risk: 9.5%. Prior Study Comparison: 08/18/2022 Bilateral MG 3D screening mammo w/cad, [facility]. 08/30/2022 Bilateral MG 3D work up w/cad [facility], [facility]. 03/19/2023 Bilateral MG 3D diag mammo w/cad [facility], [facility]. Tissue Density: There are scattered areas of fibroglandular density. Findings: Analyzed By CAD. Microclip right breast from prior biopsy. There is no suspicious group of microcalcifications or new suspicious mass in either breast. Overall Assessment: Benign, BI-RAD 2 Management: Screening Mammogram of both breasts in 1 year. . Patient should continue monthly self-breast exams. A clinical breast exam by your physician is recommended on an annual basis. This exam should not preclude additional follow-up of suspicious palpable abnormalities. Note on Kaley scores and lifetime risk: 1. A Kaley score greater than 3% is considered moderate risk. If this is the case, consider specialist referral to assess eligibility for a risk reducing agent. 2. If overall lifetime risk for the development of breast cancer is 20% or higher, the patient may qualify for future screening with alternating mammogram and breast MRI. Electronically signed and approved by: Moses Palacios M.D. Radiologist
== END | disposition home or self-care (01) ==
LOC: RADMAMWWP 09:53
PROVIDERS: ATTEND Obstetrics & Gynecology
DX: Z12.31 Encounter for screening mammogram for malignant neoplasm of breast (principal); Z80.3 Family history of malignant neoplasm of breast
CPT/HCPCS: 77063; 77067

== ENCOUNTER → 2024-02-07 | Outpatient (CLI) | payer MEDICAID ==
[2024-02-07 15:25] LABS: Basophils # (A) 0.05 X 10*3/uL (0.00-0.10); Basophils % (A) 0.5 %; Eosinophils # (A) 0.41 X 10*3/uL (0.04-0.35); Eosinophils % (A) 4.3 %; HCT 41.4 % (37.2-46.3); HGB 13.9 g/dL (12.0-15.0); Lymphocytes # (A) 2.91 X 10*3/uL (0.90-5.00); Lymphocytes % (A) 30.8 %; MCH 29.4 pg (27.0-32.0); MCHC 33.6 g/dL (32.0-37.0); MCV 87.5 FL (80.0-97.0); Mean Platelet Volume 8.3 FL (9.5-12.2); Monocytes # (A) 0.64 X 10*3/uL (0.20-1.00); Monocytes % (A) 6.8 %; NRBC Per 100 WBC 0 X 10*3/uL (0.00-0.01); Neutrophils # (A) 5.39 X 10*3/uL (1.80-7.70); Neutrophils % (A) 57.2 %; Platelet Count 341 X 10*3/uL (140-440); RBC 4.73 X 10*6/uL (4.10-5.20); RDW 12.4 % (11.5-14.5); WBC 9.44 X 10*3/uL (4.50-10.00)
[2024-02-07 15:45] LABS: ALT 50 U/L (8-44); AST 32 U/L (13-35); Albumin 4.5 g/dL (3.8-4.9); Albumin/Globulin Ratio 1.73 Ratio (1.60-3.17); Alkaline Phosphatase 116 U/L (41-126); BUN/Creat Ratio 13.38 Ratio (12.00-20.00); Blood Urea Nitrogen 10.7 mg/dL (9.0-27.0); Calcium 9.3 mg/dL (8.7-10.3); Carbon Dioxide 23.5 mmol/L (21.6-31.8); Chloride 103 mmol/L (96-109); Chol/HDL Ratio 3.81 Ratio; Globulin 2.6 g/dL (1.6-3.3); Glucose 121 mg/dL (70-110); LDL Cholesterol,Calculated 131.4 mg/dL (0.0-131.0); Potassium 4.3 mmol/L (3.5-5.5); Sodium 140 mmol/L (135-145); Total Bilirubin 0.9 mg/dL (0.3-1.2); Total Protein 7.1 g/dL (6.2-8.2)
== END | disposition home or self-care (01) ==
LOC: LABWHC1 07:36
PROVIDERS: ATTEND Family Medicine
DX: Z00.00 Encounter for general adult medical examination without abnormal findings (principal); R73.9 Hyperglycemia, unspecified
CPT/HCPCS: 36415; 80053; 80061; 83036; 84443; 85025

== ENCOUNTER → 2024-07-31 | Outpatient (CLI) | payer MEDICAID ==
--- NOTE | 2024-07-31 08:16 | CT ---
EXAMINATION TYPE: CT abdomen w con DATE OF EXAM: 07/31/2024 8:11 AM COMPARISON: None. CLINICAL INDICATION: Female, 48 years old with history of R10.12 LUQ pain; LUQ pain TECHNIQUE: Axial CT abdomen w con;Sagittal and coronal reformats were created on a separate workstat ion. Contrast used:100 mL of Isovue 300 with IV Contrast, (none if empty) Oral contrast used: with Oral Contrast (none if empty) CT DLP: 1236.80 mGycm, Automated exposure control for dose reduction was used. FINDINGS: LOWER CHEST: Left lower lobe calcified granulomas. ABDOMEN LIVER: Diffusely hypoattenuating parenchyma. GALLBLADDER AND BILE DUCTS: Layering increased densities within the lumen consistent with gallstones are present. PANCREAS: Unremarkable. SPLEEN: Unremarkable. ADRENAL GLANDS: Unremarkable. KIDNEYS AND URETERS: No evidence of hydronephrosis or renal calculus. The ureters are unremarkable. STOMACH AND BOWEL: No evidence of bowel obstruction. PERITONEUM/RETROPERITONEUM: No evidence of pneumoperitoneum or free fluid. VASCULATURE: No evidence of aortic aneurysm. MUSCULOSKELETAL: No acute osseous abnormalities LYMPH NODES: No gross evidence for lymphadenopathy. SOFT TISSUE/ABDOMINAL WALL: Unremarkable IMPRESSION: 1. No evidence for acute process to explain the patient's pain. 2. Hepatic steatosis. 3. Cholecystectomy changes. 4. No obstructive uropathy or renal calculus. [facility], , 07/31/2024 8:14 AM
== END | disposition home or self-care (01) ==
LOC: RADCTMAIN 07:05
PROVIDERS: ATTEND Family Medicine
DX: K76.0 Fatty (change of) liver, not elsewhere classified (principal); Z90.49 Acquired absence of other specified parts of digestive tract
CPT/HCPCS: 74160; Q9967

== ENCOUNTER → 2024-11-11 | Outpatient (CLI) | payer MEDICAID ==
--- NOTE | 2024-11-11 16:55 | MM ---
Reason for Exam: Screening (asymptomatic). Last mammogram was performed 1 year(s) and 1 month(s) ago. Patient History: Menarche at age 16. First Full-Term at age 22. Premenopausal. Patient has history of breast feeding. Currently using Hormonal Contraceptives, starting at age 22. 08/11/2021, High risk Core Biopsy on the right side. Maternal uncle had breast cancer, age 50. Risk Values: Kaley 5 year model risk: 1.0%. NCI Lifetime model risk: 9.3%. Prior Study Comparison: 08/30/2022 Bilateral MG 3D work up w/cad [facility], [facility]. 03/19/2023 Bilateral MG 3D diag mammo w/cad [facility], [facility]. 10/04/2023 Bilateral MG 3D screening mammo w/cad, [facility]. Tissue Density: There are scattered areas of fibroglandular density. Findings: Analyzed By CAD. Central asymmetric density right medial remains unchanged compared to 2021. Microclip right breast from prior biopsy. There is no suspicious group of microcalcifications or new suspicious mass in either breast. Overall Assessment: Benign, BI-RAD 2 Management: Screening Mammogram of both breasts in 1 year. Patient should continue monthly self-breast exams. A clinical breast exam by your physician is recommended on an annual basis. This exam should not preclude additional follow-up of suspicious palpable abnormalities. Note on Kaley scores and lifetime risk: 1. A Kaley score greater than 3% is considered moderate risk. If this is the case, consider specialist referral to assess eligibility for a risk reducing agent. 2. If overall lifetime risk for the development of breast cancer is 20% or higher, the patient may qualify for future screening with alternating mammogram and breast MRI. [facility], , 11/11/2024 4:52 PM. Electronically signed and approved by: Moses Palacios M.D. Radiologist
== END | disposition home or self-care (01) ==
LOC: RADMAMWWP 14:26
PROVIDERS: ATTEND Obstetrics & Gynecology
DX: Z12.31 Encounter for screening mammogram for malignant neoplasm of breast (principal); R92.323 Mammographic fibroglandular density, bilateral breasts; Z80.3 Family history of malignant neoplasm of breast; Z79.3 Long term (current) use of hormonal contraceptives
CPT/HCPCS: 77063; 77067